=== PATIENT | male | born 1945 | race Caucasian/White ===

== ENCOUNTER 2016-08-03 14:04 | Outpatient (CLI) | payer MEDICARE, BC ==
[~2016-08-03 14:04] MED LIST: ACETAMINOPHEN 325 MG TABLET PO PRN; CLINDAMYCIN 600 MG/D5W RTU 600 MG/50 ML RTUPB IV ONE; DEXAMETHASONE SOD PHOS INJ 10 MG/1 ML VIAL IV ONE; DEXTROSE 5%-1/2 NORMAL SALINE 1,000 ML IV PRN; MORPHINE SULFATE 10 MG/ML INJ IV PRN; ONDANSETRON HCL INJ/PF 4 MG/2 ML SDV IV PRN
--- NOTE | 2016-08-03 15:14 | RADIOLOGY REPORT (SQ) ---
EXAM DESCRIPTION: CT SOFT TISSUE NECK WITHOUT COMPLETED DATE/TIME: 08/03/2016 2:48 pm REASON FOR STUDY: R/O PERITONSILLAR ABSCESS COMPARISON: None. TECHNIQUE: Noncontrast scanning from skull base through lung apices with review of bone, soft tissue and lung windows. Reconstructed coronal and sagittal MPR images reviewed. All images stored on PAC S. All CT scanners at this facility use dose modulation, iterative reconstruction, and/or weight based d osing when appropriate to reduce radiation dose to as low as reasonably achievable (ALARA). [facility]: Dose Right [facility]: CareDose [facility]: Dose Right [facility]: Teradose 4D [facility]: TopOPPS RADIATION DOSE: 23.3 mGy. LIMITATIONS: No IV contrast, streak artifact from patient's metallic dental work FINDINGS: The right pharyngeal tonsil measures 4.4 x 3 x 3 cm in size. There is loss of discrete fa t planes around the right pharyngeal tonsil with increased attenuation in the right parapharyngeal fa t. No well circumscribed abscess on non contrasted CT. There is local mass effect with the tonsil b ulging into the right hypopharynx with about 50% airway narrowing. Inflammatory swelling extends int o the right upper tonsillar pillar and soft palate, and down to the right aryepiglottic fold and righ t piriform recess region. Findings most likely represent tonsillitis with peritonsillar cellulitis. Tumor could not entirely be excluded. This report was discussed with Dr. Wood. SKULL BASE: Intact. MAJOR SALIVARY GLANDS: No solid or cystic masses. No inflammatory changes. LYMPHADENOPATHY: No adenopathy. MUCOSAL MASSES OR ASYMMETRY: Right pharyngeal tonsil enlargement as above LARYNX/CORDS: Asymmetric thickening of the mucous membranes along the right supraglottic larynx and r ight piriform recess LUNG APICES: Clear. BONES: Multilevel degenerative disc changes in the cervical spine with high-grade right C2-3 foramina l narrowing, moderate bilateral C3-4 foraminal narrowing, moderate bilateral C4-5 foraminal narrowing , mild right C5-6 foraminal narrowing, high-grade left C6-7 foraminal narrowing. THYROID: Normal size. No masses. PARANASAL SINUSES: Clear. OTHER: No other significant finding. IMPRESSION: Enlarged right pharyngeal tonsil with surrounding inflammation in the parapharyngeal fat , soft palate, and supraglottic laryngeal structures. Findings most likely represents tonsillitis an d peritonsillar inflammation. The tonsillar fossa tumor could not entirely be excluded. Findings di scussed with Dr. Wood TECHNICAL DOCUMENTATION: JOB ID: [id number] Quality ID # [id number]: Final reports with documentation of one or more dose reduction techniques (e.g., Au tomated exposure control, adjustment of the mA and/or kV according to patient size, use of iterative reconstruction technique) 2010 [employer]- All Rights Reserved
[2016-08-03 15:23] LABS: HEMATOCRIT 43.5 % (37.9-51.0); HEMOGLOBIN 14.6 g/dL (13.5-17.0); HGB HCT DIFFERENCE 0.3; MEAN CORPUSCULAR HEMOGLOBIN 32.4 pg (27.0-33.4); MEAN CORPUSCULAR HGB CONC 33.6 g/dL (32.0-36.0); MEAN CORPUSCULAR VOLUME 97 fl (80-97); RED BLOOD COUNT 4.51 10^6/uL (4.35-5.55); RED CELL DISTRIBUTION WIDTH 13.2 % (11.5-14.0); WHITE BLOOD COUNT 15.3 10^3/uL (4.0-10.5)
[2016-08-03] MEDS: CLINDAMYCIN 600 MG/D5W RTU 600 MG/50 ML RTUPB IV SCH (17:22)
[2016-08-03] MEDS: DEXAMETHASONE SOD PHOS INJ 10 MG/1 ML VIAL IV SCH (17:22)
[2016-08-03] MEDS ORDERED: OXYCODONE-ACETAMINOPHEN 5-325 MG TABLET PO PRN (18:13)
[2016-08-03] MEDS ORDERED: OXYCODONE HCL IR 5 MG TABLET PO PRN (18:14)
[2016-08-04] MEDS: DEXAMETHASONE SOD PHOS INJ 10 MG/1 ML VIAL IV SCH ×3 (00:43→11:07)
[2016-08-04] MEDS: CLINDAMYCIN 600 MG/D5W RTU 600 MG/50 ML RTUPB IV SCH ×3 (00:43→11:35)
[2016-08-04] MEDS ORDERED: (PENDING PHARMACY ID) (Telmisartan [Micardis 80 Mg Tablet] 80 MG) PO SCH (10:00)
[2016-08-04] MEDS ORDERED: ESCITALOPRAM OXALATE 10 MG TABLET PO SCH (10:00)
[2016-08-04] MEDS ORDERED: TAMSULOSIN HCL 0.4 MG CAP.SR.24H PO SCH (10:00)
[2016-08-04] MEDS ORDERED: HYDRALAZINE HCL 25 MG TABLET PO SCH (10:00)
[2016-08-04] MEDS ORDERED: METOPROLOL SUCCINATE 25 MG TAB.SR.24H PO SCH (10:00)
[2016-08-04] MEDS ORDERED: LOSARTAN POTASSIUM 50 MG TABLET PO SCH (10:00)
[2016-08-04 12:15] VITALS: BP 147/60
--- NOTE | 2016-08-04 13:08 | DISCHARGE SUMMARY E ---
Discharge Summary NAME: JENELLE SUMMERS : 1945 AGE: 71Y ADMITTED: 08/03/2016 DISCHARGED: 08/04/2016 FINAL DIAGNOSIS: Right peritonsillar cellulitis. CONDITION ON DISCHARGE: Improved to return to the [facility]NT Clinic as needed. DISCHARGE MEDICATIONS: The patient has at home, which include: 1. Clindamycin 150 mg by mouth 4 times a day for a week. 2. He is to complete his Medrol Dosepak. PRESENT ILLNESS AND PHYSICAL EXAMINATION: As recorded on admission. LABORATORY DATA: Showed a white count of 15,000, hematocrit and hemoglobin within normal limits. HOSPITAL COURSE: Following admission evaluation, the patient was placed at bedrest, started at high-dose intravenous antibiotics using clindamycin 600 mg every 6 hours, Decadron 10 mg every 6 hours, and morphine 5 mg IV every 6 hours p.r.n. pain. By the first 12 hours, the patient felt significantly improved and Percocet 10/325 was made available to him by mouth. By the next morning, some 20 hours into his hospitalization, he was feeling well and consumed a regular breakfast. By lunch time, he was dressed, and when I made rounds on him, he was interested in going home, feeling as though he were essentially well. He will resume his clindamycin and Medrol Dosepak at home. We will see him back on an as needed basis. DICTATING PHYSICIAN: EMA ALDANA III M.D. [id number] PHY#: [id number] ID: [id number] JOB#: [id number] ACCT: [id number] cc:EMA ALDANA III, M.D. >
[2016-08-04] MEDS ORDERED: SIMVASTATIN 40 MG TABLET PO SCH (18:00)
== END 2016-08-04 13:38 | disposition home or self-care (01) ==
LOC: II 14:04 → UNDODISIN 08-04 13:38 → II 08-04 13:38
PROVIDERS: ATTEND Otolaryngology
PROC: 3E03329 Introduction of Other Anti-infective into Peripheral Vein, Percutaneous Approach (ICD-10-PCS; principal; 2016-08-03)
PROC: 3E0333Z Introduction of Anti-inflammatory into Peripheral Vein, Percutaneous Approach (ICD-10-PCS; 2016-08-03)
PROC: 3E033GC Introduction of Other Therapeutic Substance into Peripheral Vein, Percutaneous Approach (ICD-10-PCS; 2016-08-03)
PROC: 3E03329 Introduction of Other Anti-infective into Peripheral Vein, Percutaneous Approach (ICD-10-PCS; 2016-08-04)
PROC: 3E0333Z Introduction of Anti-inflammatory into Peripheral Vein, Percutaneous Approach (ICD-10-PCS; 2016-08-04)
DX: J36 Peritonsillar abscess (principal); I10 Essential (primary) hypertension; Z79.899 Other long term (current) drug therapy
CPT/HCPCS: 96365 ×2; 96367 ×2; 96375; 36415; 85027; 70490; J2270; J1100 ×2

== ENCOUNTER 2016-11-26 07:03 | Day surgery (SDC) | payer MEDICARE, BC ==
[2016-11-26] MEDS ORDERED: ONDANSETRON HCL INJ/PF 4 MG/2 ML SDV ONE (07:10)
[2016-11-26] MEDS ORDERED: NALOXONE HCL INJ/PF 0.4 MG/1 ML SDV ONE (07:11)
[2016-11-26] MEDS ORDERED: GLYCOPYRROLATE INJ 0.4 MG/2 ML VIAL ONE (07:11)
[2016-11-26] MEDS ORDERED: GLUCAGON,HUMAN RECOMB 1 MG INJ ONE (07:12)
[2016-11-26] MEDS ORDERED: FENTANYL CITRATE INJ/PF 100 MCG/2 ML AMPUL ONE (07:12)
[2016-11-26] MEDS ORDERED: EPINEPHRINE INJ 1 MG/10 ML DISP.SYRIN ONE (07:12)
[2016-11-26] MEDS ORDERED: FLUMAZENIL INJ 0.5 MG/5 ML VIAL ONE (07:12)
[2016-11-26] MEDS: MIDAZOLAM 2 MG/2 ML INJ ONE ×2 (07:38→07:44)
--- NOTE | 2016-11-26 08:15 | Operative Report ---
Operative Report DATE OF SURGERY: 11/26/16 PREOPERATIVE DIAGNOSIS: Need for screening colonoscopy POSTOPERATIVE DIAGNOSIS: Sigmoid diverticulosis otherwise normal colon OPERATION: Total colonoscopy to cecum with further documentation SURGEON: SAAD BAZAN ANESTHESIA: Moderate Sedation TISSUE REMOVED OR ALTERED: None COMPLICATIONS: None ESTIMATED BLOOD LOSS: None INTRAOPERATIVE FINDINGS: See below PROCEDURE: Obtaining informed consent the patient was taken from the preoperative holding area to the main endoscopy suite where monitoring devices were attached to the patient. Plan and surgical timeout were conducted The patient was placed in the left lateral decubitus position with knees to chest. A perianal examination was performed. There was no visible or palpable anorectal pathology. Sphincter tone was felt to be normal. The flexible adult colonoscope was advanced through the anal rectal canal, all the way to the cecum. Utilization of the cecum was achieved and the ileocecal valve, the appendiceal orifice and transillumination of the anterior abdominal wall. This was an excellent study on the well-prepped bowel. The colonoscope was withdrawn slowly and methodically checked and the mucosa carefully. There was no evidence of tumor, stricture, bleeding or polyp. There were scattered diverticulosis of the sigmoid colon. The scope was slowly withdrawn through the anal rectal canal. Complete visualization of the rectum was achieved with photodocumentation. The scope was withdrawn to the patient's anus. The patient tolerated the procedure well and was taken to the recovery area in stable condition. As patient is at average risk for colorectal carcinoma, and will be an appropriate candidate for repeat colonoscopy in 10 years.
--- NOTE | 2016-11-26 08:17 | PDOC DISCHARGE SUMMARY ---
Discharge Summary (SDC) - Discharge Final Diagnosis: Sigmoid diverticulosis otherwise normal colon Date of Surgery: 11/26/16 Discharge Date: 11/26/16 Condition: Good Treatment or Instructions: [facility] [place] [address] POST ENDOSCOPY DISCHARGE INSTRUCTIONS 1. Diet: Start clear liquids that a regular diet as tolerated. 2. Resume all preoperative medications. All oral anticoagulants and aspirins can be resumed 24 hours after procedure. 3. If a polypectomy was performed some bleeding per rectum may occur. This should stop within 3 days. If not, please contact the office. 4. If you had a colonoscopy you may experience some bloating and delayed return of normal bowel function for several days, your regular bowel movement pattern should resume within a week. 5. Please contact [facility] at to make an appointment with Dr. Lott for 1 to 3 weeks following procedure. 6. If you have any questions or concerns regarding your care,treatment plan or follow up, please contact our office. 7. Per clinical guidelines we recommend you undergo a repeat colonoscopy in 10 years. Referrals: IRWIN SIERRA MD [Primary Care Provider] - Discharge Diet: As Tolerated Discharge Activity: Activity As Tolerated Home Care Assistance: None Needed Report the Following to Your Physician Immediately: Shortness of Breath, Fever over 101 Degrees
[2016-11-26 09:14] VITALS: BP 123/60
== END 2016-11-26 09:07 | disposition home or self-care (01) ==
LOC: END 07:03
PROVIDERS: ATTEND Surgery
PROC: 0DJD8ZZ Inspection of Lower Intestinal Tract, Via Natural or Artificial Opening Endoscopic (ICD-10-PCS; principal; 2016-11-26 07:30)
DX: Z12.11 Encounter for screening for malignant neoplasm of colon (principal); K57.30 Diverticulosis of large intestine without perforation or abscess without bleeding; I10 Essential (primary) hypertension; E78.00 Pure hypercholesterolemia, unspecified; F41.9 Anxiety disorder, unspecified; N40.0 Benign prostatic hyperplasia without lower urinary tract symptoms; Z88.0 Allergy status to penicillin; Z87.891 Personal history of nicotine dependence; Z79.899 Other long term (current) drug therapy; Z79.82 Long term (current) use of aspirin
CPT/HCPCS: G0121; J2250; J3010; 45378; J0171; J1610; J2310; J2405; J3490

== ENCOUNTER 2017-06-22 09:28 | Day surgery (SDC) | payer MEDICARE, BC ==
[~2017-06-22 09:28] MED LIST changes: -ACETAMINOPHEN 325 MG TABLET PO PRN; +BUPIVACAINE HCL 0.75% INJ/PF (7.5 MG/1 ML) 10 ML SDV OS PRN; +CHONDR SU A NA/HYALUR INTRAOC KIT (SURGICARE) ONE; -CLINDAMYCIN 600 MG/D5W RTU 600 MG/50 ML RTUPB IV ONE; -DEXAMETHASONE SOD PHOS INJ 10 MG/1 ML VIAL IV ONE; -DEXTROSE 5%-1/2 NORMAL SALINE 1,000 ML IV PRN; +EPINEPHRINE INJ/PF 1 MG/1 ML AMPULE ONE; +FENTANYL CITRATE INJ/PF 100 MCG/2 ML AMPUL ONE; +KETOROLAC TROMETHAMINE 0.45% 4 DROP/0.4 ML DROPERETTE OS PRN; +LIDOCAINE 1% INJ-PF (10 MG/ML) 30 ML SDV ONE; +LIDOCAINE 4% INJ/PF (40 MG/ML) 5 ML AMPUL OS PRN; +MIDAZOLAM 2 MG/2 ML INJ ONE; -MORPHINE SULFATE 10 MG/ML INJ IV PRN; -ONDANSETRON HCL INJ/PF 4 MG/2 ML SDV IV PRN; +ONDANSETRON HCL INJ/PF 4 MG/2 ML SDV ONE
[2017-06-22] MEDS: TROPICAMIDE 1% OPH SOLN 3 ML OS PRN ×3 (10:09→10:36)
[2017-06-22] MEDS: TETRACAINE HCL 0.5% OPH SOLN 0.6 ML DROPERETTE OS PRN ×2 (10:09→10:44)
[2017-06-22] MEDS: CYCLOPENTOLATE 0.2%/PHENYLEPHRINE 1% OPH SOLN 2 ML OS PRN ×3 (10:09→10:36)
[2017-06-22] MEDS: BESIFLOXACIN HCL 0.6% OPH SUSP 5 ML BOTTLE OS PRN ×3 (10:10→11:21)
--- NOTE | 2017-06-22 11:59 | [facility] OPERATIVE REPORT E ---
[facility] Operative Report NAME: JENELLE SUMMERS AGE: 72Y DATE OF SURGERY: 06/22/2017 ROOM: PREOPERATIVE DIAGNOSIS: CATARACT, LEFT EYE. POSTOPERATIVE DIAGNOSIS: CATARACT, LEFT EYE. OPERATION: Phacoemulsification with Toric multifocal intraocular lens, left eye. SURGEON: MARÍA ELENA LEWIS M.D. ANESTHESIA: Topical with MAC. INDICATIONS FOR SURGERY: Difficulty seeing golf ball, road signs, and words on TV. Glare with night driving. Best corrected visual acuity 20/30 with glare to 20/60. DESCRIPTION OF PROCEDURE: The patient was brought to the operating room and placed on the operative table. Following tetracaine drops, topical anesthesia was administered. This consisted of instrument wipe pledgets soaked in a solution of 4% Xylocaine mixed with 0.75% Marcaine in a 1:2 ratio. A 2 x 1 cm pledget was placed in the superior fornix. A 1 x 1 cm pledget was placed in the inferior fornix. The eye was patched shut for 5 minutes. The patch was removed. The eye was sterilely prepped and draped in the usual manner. Lid speculum was placed in the eye. The pledgets were removed, 4-0 black silk sutures were placed around the superior and the inferior rectus muscles to be used as traction. A conjunctival peritomy was made at the 10 o'clock position. Hemostasis was obtained with bipolar cautery. A posterior limbal groove was created using a crescent knife and dissected anteriorly towards the cornea. A sharp point blade was used to create a paracentesis site at the 2 o'clock position. A 2.4 mm keratome was used to enter the anterior chamber through the groove. Viscoelastic was injected into the anterior chamber. An anterior capsulotomy was performed using Utrata forceps in a capsulorrhexis fashion. Hydrodissection and hydrodelineation were performed. Phacoemulsification was performed in [id number] technique. A total of 37 seconds phaco time was used. Following this, the I/A unit was used to remove residual cortex. Viscoelastic was injected into the capsular bag. Intraocular lens Model QQT295, serial number [id number] was placed in the capsular bag. The I/A unit was used to removed residual viscoelastic. The wound was seen to be watertight under high and low pressure, and no sutures were placed. The intraocular lens was well centered. The pressure was adjusted in the eye to normal pressure. The 4-0 black silk sutures and lid speculum were removed. The eye was shielded after Besivance drops were placed. The patient tolerated the procedure well and was sent to the recovery room in good condition. Prior to the surgery, patient was placed in a seated position and a 0, 270, and 180-degree axis of the eye was marked using a marking level. Prior to placing the lens implant, the 168-degree axis was marked on the eye and the lens was centered at this axis. DICTATING PHYSICIAN: MARÍA ELENA LEWIS M.D. [id number] [id number] PHY#: [id number] ID: [id number] JOB#: [id number] ACCT: [id number] cc:MARÍA ELENA LEWIS M.D. > MTDD
--- NOTE | 2017-06-22 12:04 | [facility] DISCHARGE SUMMARY E ---
[facility] Discharge Summary NAME: JENELLE SUMMERS AGE: 72Y ADMITTED: 06/22/2017 DISCHARGED: 06/22/2017 PREOPERATIVE DIAGNOSIS: CATARACT, LEFT EYE. POSTOPERATIVE DIAGNOSIS: CATARACT, LEFT EYE. HOSPITAL COURSE: Patient underwent uneventful cataract extraction with symfony Toric intraocular lens implant, left eye, on 06/22/2017. DISPOSITION: He will be discharged to home. He was instructed to resume preoperative medications; take Tylenol as needed for discomfort; to keep his eye shielded; to use Besivance, Durezol, and Ilevro at 3:00 p.m. and 8:00 p.m.; and to follow up in my office in 1 day. DICTATING PHYSICIAN: MARÍA ELENA LEWIS M.D. 1265M 1158 PHY#: [id number] ID: [id number] JOB#: [id number] ACCT: [id number] cc:MARÍA ELENA LEWIS M.D. > MTDD
== END 2017-06-22 12:04 | disposition home or self-care (01) ==
LOC: SC 09:28
PROVIDERS: ATTEND Ophthalmology
PROC: 08RK3JZ Replacement of Left Lens with Synthetic Substitute, Percutaneous Approach (ICD-10-PCS; principal; 2017-06-22 11:00)
DX: H25.812 Combined forms of age-related cataract, left eye (principal); E78.00 Pure hypercholesterolemia, unspecified; N40.0 Benign prostatic hyperplasia without lower urinary tract symptoms; Z79.899 Other long term (current) drug therapy; Z88.0 Allergy status to penicillin
CPT/HCPCS: 66984; J2250; J3490 ×4; A9270; J0171; J3010; J2405; 142

== ENCOUNTER 2017-10-12 09:15 | Day surgery (SDC) | payer MEDICARE, BC ==
[~2017-10-12 09:15] MED LIST changes: +BUPIVACAINE HCL 0.75% INJ/PF (7.5 MG/1 ML) 10 ML SDV OD PRN; -BUPIVACAINE HCL 0.75% INJ/PF (7.5 MG/1 ML) 10 ML SDV OS PRN; -FENTANYL CITRATE INJ/PF 100 MCG/2 ML AMPUL ONE; +KETOROLAC TROMETHAMINE 0.45% 4 DROP/0.4 ML DROPERETTE OD PRN; -KETOROLAC TROMETHAMINE 0.45% 4 DROP/0.4 ML DROPERETTE OS PRN; +LIDOCAINE 4% INJ/PF (40 MG/ML) 5 ML AMPUL OD PRN; -LIDOCAINE 4% INJ/PF (40 MG/ML) 5 ML AMPUL OS PRN; -MIDAZOLAM 2 MG/2 ML INJ ONE; -ONDANSETRON HCL INJ/PF 4 MG/2 ML SDV ONE
[2017-10-12] MEDS ORDERED: ONDANSETRON HCL INJ/PF 4 MG/2 ML SDV ONE (09:45)
[2017-10-12] MEDS ORDERED: MIDAZOLAM 2 MG/2 ML INJ ONE (09:45)
[2017-10-12] MEDS ORDERED: FENTANYL CITRATE INJ/PF 100 MCG/2 ML AMPUL ONE (09:45)
[2017-10-12] MEDS: CYCLOPENTOLATE 0.2%/PHENYLEPHRINE 1% OPH SOLN 2 ML OD PRN ×3 (10:16→10:32)
[2017-10-12] MEDS: TETRACAINE HCL 0.5% OPH SOLN 0.6 ML DROPERETTE OD PRN ×2 (10:16→10:51)
[2017-10-12] MEDS: BESIFLOXACIN HCL 0.6% OPH SUSP 5 ML BOTTLE OD PRN ×3 (10:17→11:37)
[2017-10-12] MEDS: TROPICAMIDE 1% OPH SOLN 3 ML OD PRN ×3 (10:17→10:32)
[2017-10-12] MEDS ORDERED: LIDOCAINE 1%/PHENYLEPHRINE 1.5% 1 ML VIAL ONE (10:52)
--- NOTE | 2017-10-12 12:06 | [facility] OPERATIVE REPORT E ---
[facility] Operative Report NAME: JENELLE SUMMERS AGE: 72Y DATE OF SURGERY: 10/12/2017 ROOM: [facility] Operative Report PREOPERATIVE DIAGNOSIS: CATARACT, RIGHT EYE. POSTOPERATIVE DIAGNOSIS: CATARACT, RIGHT EYE. PROCEDURE PERFORMED: CATARACT SURGERY WITH SYMPHONY MULTIFOCAL INTRAOCULAR LENS, RIGHT EYE. SURGEON: MARÍA ELENA LEWIS MD ANESTHESIA: TOPICAL WITH MAC. INDICATIONS FOR SURGERY: Difficulty driving. Best corrected visual acuity 20/40. PROCEDURE: The patient was brought to the Operating Room and placed on the operative table. Following tetracaine drops, topical anesthesia was administered. This consisted of instrument wipe pledgets soaked in a solution of 4% Xylocaine mixed with 0.75% Marcaine in a 1:2 ratio. A 2 x 1 cm pledget was placed in the superior fornix. A 1 x 1 cm pledget was placed in the inferior fornix. The eye was patched shut for 5 minutes. The patch was removed. The eye was sterilely prepped and draped in the usual manner. Lid speculum was placed in the eye. The pledgets were removed. 4-0 black silk sutures were placed around the superior and the inferior rectus muscles to be used as traction. A conjunctival peritomy was made at the 10 o'clock position. Hemostasis was obtained with bipolar cautery. A posterior limbal groove was created using a crescent knife and dissected anteriorly towards the cornea. A sharp point blade was used to create a paracentesis site at the 2 o'clock position. A 2.4 mm keratome was used to enter the anterior chamber through the groove. Viscoelastic was injected into the anterior chamber. An anterior capsulotomy was performed using Utrata forceps in a capsulorrhexis fashion. Hydrodissection and hydrodelineation were performed. Phacoemulsification was performed in [id number] technique. A total of 54 seconds phaco time was used. Following this, the I/A unit was used to remove residual cortex. Viscoelastic was injected into the capsular bag. Intraocular lens model ZXR00, 21.5 diopters, serial number [id number] was placed in the capsular bag. The I/A unit was used to remove residual viscoelastic. The wound was seen to be watertight under high and low pressure, and no sutures were placed. The intraocular lens was well centered. The pressure was adjusted in the eye to normal pressure. The 4-0 black silk sutures and lid speculum were removed. The eye was shielded after Besivance drops were placed. The patient tolerated the procedure well and was sent to the Recovery Room in good condition. DICTATING PHYSICIAN: MARÍA ELENA LEWIS M.D. DICTATING PHYSICIAN: MARÍA ELENA LEWIS M.D. [id number] [id number] PHY#: [id number] ID: [id number] JOB#: [id number] ACCT: [id number] cc:MARÍA ELENA LEWIS M.D. >
--- NOTE | 2017-10-12 12:11 | [facility] DISCHARGE SUMMARY E ---
[facility] Discharge Summary NAME: JENELLE SUMMERS AGE: 72Y ADMITTED: 10/12/2017 DISCHARGED: 10/12/2017 FINAL DIAGNOSIS: CATARACT, RIGHT EYE HOSPITAL COURSE: The patient is a 72-year-old gentleman who underwent uneventful cataract extraction with Symfony IOL implants, right eye on 10/12/2017. He will be discharged to home. He is instructed to resume preoperative medications, take Tylenol as needed for discomfort, to keep his eye shielded, to use Besivance, Durezol and Ilevro at 3 p.m. and 8 p.m., and to follow up in my office in 1 day. DICTATING PHYSICIAN: MARÍA ELENA LEWIS M.D. [id number] 1204 PHY#: [id number] ID: [id number] JOB#: [id number] ACCT: [id number] cc:MARÍA ELENA LEWIS M.D. >
== END 2017-10-12 12:19 | disposition home or self-care (01) ==
LOC: SC 09:15
PROVIDERS: ATTEND Ophthalmology
DX: H25.811 Combined forms of age-related cataract, right eye (principal); Z96.1 Presence of intraocular lens; H40.022 Open angle with borderline findings, high risk, left eye; H35.372 Puckering of macula, left eye; I10 Essential (primary) hypertension; Z79.899 Other long term (current) drug therapy
CPT/HCPCS: 66984; J2250; J3490 ×3; A9270; J0171; J3010; J2405; J2370; 142; V2788